=== PATIENT | male | born 1975 | race Hispanic/Latino ===

== ENCOUNTER 2019-05-27 15:14 | Emergency (ER) | payer OTHER ==
[2019-05-27 16:07] LABS: Basophils % 0.8 % (0-1.3); Hematocrit 45.3 % (39.6-49.0); Lymphocytes % 19.5 % (15.3-44.8); MPV 9.8 fL (7.6-11.3); RBC Red Blood Cell Count 4.98 M/uL (4.33-5.43)
[2019-05-27 16:10] LABS: Protime INR 1.01
[2019-05-27 16:25] LABS: ALT/SGPT 75 U/L (12-78); AST/SGOT 26 U/L (15-37); Albumin 3.9 g/dL (3.4-5.0); Alkaline Phosphatase 74 U/L (45-117); BUN Blood Urea Nitrogen 19 mg/dL (7-18); Bicarbonate 28 mmol/L (21-32); Bilirubin Direct < 0.1 mg/dL (0-0.2); Bilirubin Total 0.3 mg/dL (0.2-1.0); Glucose Level 101 mg/dL (74-106); Magnesium 2.1 mg/dL (1.8-2.4); NT PRO-BNP 27 pg/mL (<125); Potassium 3.9 mmol/L (3.5-5.1); Protein, Total 7.5 g/dL (6.4-8.2); Sodium Level 143 mmol/L (136-145); Troponin (Emerg Dept Use Only) < 0.02 ng/mL (0.0-0.045)
[2019-05-27] MEDS ORDERED: ASPIRIN 81 MG CHEWABLE TABLET ONE (16:59)
[2019-05-27] MEDS ORDERED: MORPHINE 4 MG/ML SYR ONE (17:00)
[2019-05-27] MEDS ORDERED: METOPROLOL TARTRATE 5 MG/5 ML INJ IV ONE (17:00)
[2019-05-27] MEDS ORDERED: ONDANSETRON 4 MG/2 ML VIAL ONE (17:00)
--- NOTE | 2019-05-27 17:43 | RAD REPORT ---
EXAM DESCRIPTION: RAD - Chest Single View - 05/27/2019 3:56 pm CLINICAL HISTORY: Chest pain;Dyspnea Chest pain. COMPARISON: No comparisons FINDINGS: Portable technique limits examination quality. The lungs are grossly clear. The heart is normal in size. No displaced fractures. IMPRESSION: No acute intrathoracic process suspected.
--- NOTE | 2019-05-27 18:29 | ER ---
Nurse's Notes [facility] Name: Molina Shine Age: 43 yrs Sex: Male : 1975 Arrival Date: 05/27/2019 Time: 15:17 Bed 14 Private MD: Diagnosis: Chest pain, unspecified Presentation: 05/26 15:20 Chief complaint: Patient states: Chest pain since yesterday. It gets tight and worse ca1 today, concerning in the past few hours. The pain goes to the back and neck on the L side. Reports SOB before chest pain, nausea and dizziness. Reports cough and congestion x 2 weeks. Denies fever. Coronavirus screen: Surgical mask placed on patient. Patient moved to private room, placed in contact and droplet isolation with eye protection until further assessment. Patient reports a cough. Patient reports shortness of breath or difficulty breathing. Patient denies measured and/or subjective temperature greater than 100.4F. Patient denies travel on a cruise ship or to a country the [facility] currently lists as an affected area. Patient denies contact with known and/or suspected case of COVID-19. Infection Prevention Nurse has been notified of patient in isolation for probable COVID-19. Ebola Screen: Patient negative for fever greater than or equal to 101.5 degrees Fahrenheit, and additional compatible Ebola Virus Disease symptoms Patient denies exposure to infectious person. Patient denies travel to an Ebola-affected area in the 21 days before illness onset. No symptoms or risks identified at this time. Initial Sepsis Screen: Does the patient meet any 2 criteria? No. Patient's initial sepsis screen is negative. Does the patient have a suspected source of infection? No. Patient's initial sepsis screen is negative. Risk Assessment: Do you want to hurt yourself or someone else? Patient reports no desire to harm self or others. Onset of symptoms was May 27, 2019. 15:20 Method Of Arrival: Ambulatory ca1 15:20 Acuity: VERNON 3 ca1 Historical: - Allergies: 15:25 No Known Allergies; ca1 - PMHx: 15:25 Hernia; ca1 - PSHx: 15:25 Hernia repair; ca1 - Immunization history:: Adult Immunizations up to date, Flu vaccine is not up to date. - Social history:: Smoking status: Patient denies any tobacco usage or history of. Vital Signs: 15:20 BP 162 / 105; Pulse 100; Resp 17 S; Temp 97.2(TE); Pulse Ox 100% on R/A; Weight 127.01 ca1 kg (R); Height 6 ft. 0 in. (182.88 cm) (R); Pain 6/10; 16:04 BP 156 / 99; Pulse 94; Resp 16; Pulse Ox 99% ; lt1 18:40 BP 154 / 99; Pulse 81; Resp 15; Temp 98.7; Pulse Ox 98% ; lt1 15:20 Body Mass Index 37.97 (127.01 kg, 182.88 cm) ca1 ED Course: 15:17 Patient arrived in ED. ag5 15:24 Triage completed. ca1 15:25 Arm band placed on right wrist. ca1 15:30 J[facility]C [facility]. kb 15:30 Evert Le MD is Attending Physician. kb 15:40 Jamila Chavarria RN is Primary Nurse. ls4 15:56 XRAY Chest (1 view) In Process Unspecified. EDMS 15:57 Initial lab(s) drawn, by me, sent to lab. EKG done, by ED staff, reviewed by Jovanna GAINES. Inserted saline lock: 20 gauge in right antecubital area, using aseptic technique. 15:59 Bed in low position. Call light in reach. Side rails up X 1. Door closed. Lights lt1 dimmed. Warm blanket given. Pillow given. 15:59 Basic Metabolic Panel Sent. lt1 15:59 CBC with Diff Sent. lt1 15:59 LFT's Sent. lt1 15:59 Magnesium Sent. lt1 15:59 NT PRO-BNP Sent. lt1 15:59 PT-INR Sent. lt1 15:59 Troponin (emerg Dept Use Only) Sent. lt1 Administered Medications: 16:32 Not Given (Physician Discretion): Lopressor 5 mg IVP every 5 minutes; Hold for SBP < kb 100 or HR < 60. x3 16:40 Drug: Aspirin Chewable Tablet 324 mg Route: PO; ls4 18:13 Drug: Zofran (Ondansetron) 4 mg Route: IVP; Site: right antecubital; ls4 18:14 Drug: morphine 4 mg Route: IVP; Site: right antecubital; ls4 Outcome: 18:28 Discharge ordered by . kb 19:18 Patient left the ED. ls4 Signatures: Dispatcher [employer] EDJovanna Chance, Jamila Baldwin RN RN ls4 Keli Stoll RN RN ca1 [place] 5 Malgorzata Moncada 1
--- NOTE | 2019-05-27 18:30 | EDPHYS ---
Physician Documentation [facility] Name: Molina Shine Age: 43 yrs Sex: Male : 1975 Arrival Date: 05/27/2019 Time: 15:17 Bed 14 Private MD: ED Physician Evert Le HPI: 05/26 16:03 This 43 yrs old Male presents to ER via Ambulatory with complaints of kb Shortness Of Breath, Chest Pain, Neck Pain, <24hrs Old, Back Pain. 16:04 The patient or guardian reports chest pain that is located primarily in the anterior kb chest wall, left. Onset: last night. The pain radiates to left neck, back. Associated signs and symptoms: Pertinent positives: cough, shortness of breath, Pertinent negatives: abdominal pain, diaphoresis, dizziness, headache, lower extremity pain, lower extremity swelling, lightheadedness, nausea, near syncope, palpitations, recent travel, syncope, vomiting. The chest pain is described as a pressure. Duration: The patient or guardian reports multiple episodes, that are intermittent, with no pattern. Modifying factors: The symptoms are alleviated by nothing. the symptoms are aggravated by nothing. Severity of pain: At its worst the pain was moderate in the emergency department the pain is unchanged. The patient has not experienced similar symptoms in the past. The patient has not recently seen a physician. Pt reports chest pain and shortness of breath that has been intermittent since last night. Reports the episodes are getting more frequent and now the pain is radiating to left neck and back. Pt called his dr and was advised to come to the ER for eval. Pt reports cough and congestion that started a few weeks ago when the weather changed, no fever, sore throat. . Historical: - Allergies: 15:25 No Known Allergies; ca1 - PMHx: 15:25 Hernia; ca1 - PSHx: 15:25 Hernia repair; ca1 - Immunization history:: Adult Immunizations up to date, Flu vaccine is not up to date. - Social history:: Smoking status: Patient denies any tobacco usage or history of. ROS: 15:49 Constitutional: Negative for fever, chills, and weight loss, ENT: Negative for injury, kb pain, and discharge, Abdomen/GI: Negative for abdominal pain, nausea, vomiting, diarrhea, and constipation, Back: Negative for injury and pain, MS/Extremity: Negative for injury and deformity, Skin: Negative for injury, rash, and discoloration, Neuro: Negative for headache, weakness, numbness, tingling, and seizure. 15:49 Cardiovascular: Positive for chest pain, Negative for edema, orthopnea, palpitations, paroxysmal nocturnal dyspnea. 15:49 Respiratory: Positive for cough, with clear sputum, Negative for dyspnea on exertion, hemoptysis, orthopnea, pleurisy, shortness of breath, wheezing. Exam: 15:48 Constitutional: This is a well developed, well nourished patient who is awake, alert, kb and in no acute distress. Head/Face: Normocephalic, atraumatic. ENT: Nares patent. No nasal discharge, no septal abnormalities noted. Tympanic membranes are normal and external auditory canals are clear. Oropharynx with no redness, swelling, or masses, exudates, or evidence of obstruction, uvula midline. Mucous membranes moist. Neck: Trachea midline, no thyromegaly or masses palpated, and no cervical lymphadenopathy. Supple, full range of motion without nuchal rigidity, or vertebral point tenderness. No Meningismus. Chest/axilla: Normal chest wall appearance and motion. Nontender with no deformity. No lesions are appreciated. Cardiovascular: Regular rate and rhythm with a normal S1 and S2. No gallops, murmurs, or rubs. Normal PMI, no JVD. No pulse deficits. Respiratory: Lungs have equal breath sounds bilaterally, clear to auscultation and percussion. No rales, rhonchi or wheezes noted. No increased work of breathing, no retractions or nasal flaring. Abdomen/GI: Soft, non-tender, with normal bowel sounds. No distension or tympany. No guarding or rebound. No evidence of tenderness throughout. Back: No spinal tenderness. No costovertebral tenderness. Full range of motion. Skin: Warm, dry with normal turgor. Normal color with no rashes, no lesions, and no evidence of cellulitis. MS/ Extremity: Pulses equal, no cyanosis. Neurovascular intact. Full, normal range of motion. Neuro: Awake and alert, GCS 15, oriented to person, place, time, and situation. Cranial nerves II-XII grossly intact. Motor strength 5/5 in all extremities. Sensory grossly intact. Cerebellar exam normal. Normal gait. 15:48 ECG was reviewed by the Attending Physician. Vital Signs: 15:20 BP 162 / 105; Pulse 100; Resp 17 S; Temp 97.2(TE); Pulse Ox 100% on R/A; Weight 127.01 ca1 kg (R); Height 6 ft. 0 in. (182.88 cm) (R); Pain 6/10; 16:04 BP 156 / 99; Pulse 94; Resp 16; Pulse Ox 99% ; lt1 18:40 BP 154 / 99; Pulse 81; Resp 15; Temp 98.7; Pulse Ox 98% ; lt1 15:20 Body Mass Index 37.97 (127.01 kg, 182.88 cm) ca1 MDM: 15:30 Patient medically screened. kb 15:48 Data reviewed: vital signs, nurses notes. Data interpreted: Pulse oximetry: on room air kb is 100 %. Interpretation: normal. 16:27 The patient was given aspirin in the Emergency Department. JAVIER Risk Score: TOTAL SCORE kb = 0. ED course: HEART score 0. 18:27 Counseling: I had a detailed discussion with the patient and/or guardian regarding: the kb historical points, exam findings, and any diagnostic results supporting the discharge/admit diagnosis, lab results, radiology results, the need for outpatient follow up, a family practitioner, to return to the emergency department if symptoms worsen or persist or if there are any questions or concerns that arise at home. 05/26 15:30 Order name: Basic Metabolic Panel; Complete Time: 16:26 kb 05/26 15:30 Order name: CBC with Diff; Complete Time: 16:09 kb 05/26 15:30 Order name: LFT's; Complete Time: 16:26 kb 05/26 15:30 Order name: Magnesium; Complete Time: 16:26 kb 05/26 15:30 Order name: NT PRO-BNP; Complete Time: 16:26 kb 05/26 15:30 Order name: PT-INR; Complete Time: 16:20 kb 05/26 15:30 Order name: Troponin (emerg Dept Use Only); Complete Time: 16:26 kb 05/26 15:30 Order name: XRAY Chest (1 view); Complete Time: 17:51 kb 05/26 15:30 Order name: EKG; Complete Time: 15:32 kb 05/26 17:32 Order name: Troponin (emerg Dept Use Only); Complete Time: 18:27 kb 05/26 15:30 Order name: Cardiac monitoring; Complete Time: 15:59 kb 05/26 15:30 Order name: EKG - Nurse/Tech; Complete Time: 15:58 kb 05/26 15:30 Order name: IV Saline Lock; Complete Time: 15:58 kb 05/26 15:30 Order name: Labs collected and sent; Complete Time: 15:58 kb 05/26 15:30 Order name: O2 Per Protocol; Complete Time: 15:58 kb 05/26 15:30 Order name: O2 Sat Monitoring; Complete Time: 15:57 kb 05/26 17:32 Order name: EKG; Complete Time: 17:33 kb 05/26 17:32 Order name: EKG - Nurse/Tech; Complete Time: 17:35 kb EC:48 Rate is 96 beats/min. Rhythm is regular. QRS [place] is Normal. [place] interval is normal at kb 132 msec. QRS interval is normal at 76 msec. QT interval is normal at 338 msec. Administered Medications: 16:32 Not Given (Physician Discretion): Lopressor 5 mg IVP every 5 minutes; Hold for SBP < kb 100 or HR < 60. x3 16:40 Drug: Aspirin Chewable Tablet 324 mg Route: PO; ls4 18:13 Drug: Zofran (Ondansetron) 4 mg Route: IVP; Site: right antecubital; ls4 18:14 Drug: morphine 4 mg Route: IVP; Site: right antecubital; ls4 Disposition: 05/27/19 18:28 Discharged to Home. Impression: Chest pain, unspecified. - Condition is Stable. - Discharge Instructions: Nonspecific Chest Pain, [id number]. - Medication Reconciliation Form, Thank You Letter, Antibiotic Education, Prescription Opioid Use form. - Follow up: Emergency Department; When: As needed; Reason: Worsening of condition. Follow up: Private Physician; When: 2 - 3 days; Reason: Recheck today's complaints, Continuance of care, Re-evaluation by your physician. Signatures: Dispatcher [employer] EDJovanna Chance, Jamila Baldwin RN RN ls4 Keli Stoll RN RN [facility] Corrections: (The following items were deleted from the chart) 19:18 18:28 05/27/2019 18:28 Discharged to Home. Impression: Chest pain, unspecified. ls4 Condition is Stable. Forms are Medication Reconciliation Form, Thank You Letter, Antibiotic Education, Prescription Opioid Use. Follow up: Emergency Department; When: As needed; Reason: Worsening of condition. Follow up: Private Physician; When: 2 - 3 days; Reason: Recheck today's complaints, Continuance of care, Re-evaluation by your physician. kb
[2019-05-27 19:50] VITALS: TEMP 98.7; O2SAT 98
[2019-05-27 20:21] VITALS: BP 122/85
--- NOTE | 2019-05-28 11:22 | EKG ---
Test Date: 2019-05-27 Test Time: 17:41:16 Installer: DIANNT MEASUREMENT RESULTS: Intervals: Rate: 83 IN: 132 QRSD: 80 QT: 358 QTc: 420 [place]: P: 31 IN: 132 QRS: 6 T: 31 INTERPRETIVE STATEMENTS: Normal sinus rhythm Normal ECG Compared to ECG 05/27/2019 15:41:38 No significant changes Electronically Signed On 05-28-19 11:20:20 CDT by Kilo South
--- NOTE | 2019-05-28 11:23 | EKG ---
Test Date: 2019-05-27 Test Time: 15:41:38 Rpg Developer: DIANNT MEASUREMENT RESULTS: Intervals: Rate: 96 FL: 132 QRSD: 76 QT: 338 QTc: 427 [place]: P: 30 FL: 132 QRS: 6 T: 33 INTERPRETIVE STATEMENTS: Normal sinus rhythm Normal ECG No previous ECG available for comparison Electronically Signed On 05-28-19 11:20:26 CDT by Kilo South
== END 2019-05-27 19:18 | disposition home or self-care (01) ==
LOC: ER 15:14
DX: R07.9 Chest pain, unspecified (principal)
CPT/HCPCS: 93005 ×2; 85025; 80048; 36415; 83735; 85610; 80076; 84484 ×2; 83880; 71045; 96375; 96374; 99284; J2405

== ENCOUNTER 2021-07-13 15:57 | Emergency (ER) | payer OTHER ==
--- OUTSIDE RECORDS SUMMARY | 2021-07-13 16:01 | XMS REPORT | Continuity of Care Document ---
:1975 Author Organization [facility] t Address [address] [place] [address] [address] [place] [address] Care Team Providers Name Role Phone Unavailable Unavailable Unavailable Problems This patient has no known problems. Allergies, Adverse Reactions, Alerts This patient has no known allergies or adverse reactions. Medications This patient has no known medications. Procedures This patient has no known procedures. Results Test Description Test Time Test Comments Results Result Comments Source PLATELET COUNT 2016-09-04 11:31:00 Test Item Value Reference Range Interpretation Comme nts PLATELET COUNT (GEOVANNA) (test code = 756) 194 K/CU MM 150-430
[2021-07-13 16:41] LABS: Absolute Lymphocytes (CBC) 1.6 K/uL (0.7-4.9); Hematocrit 45.3 % (39.6-49.0); Lymphocytes % 13.9 % (15.3-44.8); MPV 9.3 fL (7.6-11.3)
[2021-07-13] MEDS ORDERED: MORPHINE 4 MG/ML SYR ONE (16:47)
[2021-07-13] MEDS ORDERED: ASPIRIN 81 MG CHEWABLE TABLET ONE (16:47)
[2021-07-13 16:57] LABS: Bilirubin Direct 0.2 mg/dL (0-0.2); Bilirubin Total 0.4 mg/dL (0.2-1.0); Potassium 3.9 mmol/L (3.5-5.1)
[2021-07-13 16:58] LABS: Albumin 3.5 g/dL (3.4-5.0); Magnesium 2.1 mg/dL (1.8-2.4); Troponin High Sensitivity 4.8 pg/mL (<58.9)
--- NOTE | 2021-07-13 17:18 | RAD REPORT ---
EXAM DESCRIPTION: RAD - Chest Single View - 07/13/2021 5:02 pm CLINICAL HISTORY: CHEST PAIN Chest pain. COMPARISON: Chest Single View dated 05/27/2019 FINDINGS: Portable technique limits examination quality. The lungs are grossly clear. The heart is normal in size. No displaced fractures. IMPRESSION: No acute intrathoracic process suspected.
[2021-07-13 17:24] LABS: Protime INR 0.93
[2021-07-13] MEDS ORDERED: IPRATROPIUM BROM 0.5MG/2.5ML ONE (19:02)
[2021-07-13] MEDS ORDERED: KETOROLAC 30 MG/ML INJ ONE (19:02)
[2021-07-13] MEDS ORDERED: ALBUTEROL 2.5 MG/3 ML NEB SOL ONE (19:02)
--- NOTE | 2021-07-13 21:23 | EDPHYS ---
Physician Documentation [facility] Name: Molina Shine Age: 45 yrs Sex: Male : 1975 Arrival Date: 07/13/2021 Time: 15:59 Bed 13 Private MD: ED Physician Evert Le HPI: 07/13 16:25 This 45 yrs old Male presents to ER via Ambulatory with complaints of Chest cp Pain, Shortness Of Breath. 16:25 The patient or guardian reports chest pain that is located primarily in the anterior cp chest wall, left. 16:25 Onset: this morning. cp 16:25 The pain does not radiate. cp 16:25 Associated signs and symptoms: Pertinent positives: cough, shortness of breath, cp Pertinent negatives: abdominal pain, diaphoresis, lower extremity pain, lower extremity swelling, palpitations, vomiting. Duration: The patient or guardian reports a single episode, that is still ongoing. Modifying factors: the symptoms are aggravated by deep breath. Severity of pain: in the emergency department the pain is unchanged despite home interventions. Historical: - Allergies: 16:05 No Known Allergies; vg1 - Home Meds: 16:05 None [Active]; vg1 - PMHx: 16:05 Hypertensive disorder; Hernia; vg1 - PSHx: 16:05 Hernia Repair; vg1 - Immunization history:: Client reports receiving the 2nd dose of the Covid vaccine. - Social history:: Smoking status: Patient denies any tobacco usage or history of. ROS: 16:30 Constitutional: Negative for body aches, chills, fever, poor PO intake. cp 16:30 Eyes: Negative for injury, pain, redness, and discharge. cp 16:30 ENT: Negative for drainage from ear(s), ear pain, sore throat, difficulty swallowing, difficulty handling secretions. 16:30 Cardiovascular: Positive for chest pain, Negative for edema, palpitations. 16:30 Respiratory: Positive for shortness of breath, at rest. Negative for cough, sputum production, wheezing. 16:30 Abdomen/GI: Negative for abdominal pain, nausea, vomiting, and diarrhea, constipation, black/tarry stool, rectal bleeding. 16:30 : Negative for urinary symptoms. 16:30 Skin: Negative for cellulitis, rash. 16:30 Neuro: Negative for altered mental status, dizziness, headache, numbness, syncope, weakness. 16:30 All other systems are negative. Exam: 16:31 ECG was reviewed by the Attending Physician. cp 16:35 Constitutional: The patient appears in no acute distress, alert, awake, cp non-diaphoretic, non-toxic, well developed, well nourished, obese. 16:35 Head/Face: Normocephalic, atraumatic. cp 16:35 Eyes: Periorbital structures: appear normal, Conjunctiva: normal, no exudate, no cp injection, Sclera: no appreciated abnormality, Lids and lashes: appear normal, bilaterally. 16:35 ENT: External ear(s): are unremarkable, Nose: is normal, Mouth: Lips: moist, Oral cp mucosa: moist, Posterior pharynx: Airway: no evidence of obstruction, patent, Tonsils: are normal in appearance, swelling, is not appreciated, erythema, is not appreciated, exudate, is not appreciated. 16:35 Neck: ROM/movement: is normal, is supple, without pain, no range of motions limitations. 16:35 Chest/axilla: Inspection: normal, Palpation: is normal, no crepitus, no tenderness. 16:35 Cardiovascular: Rate: normal, Rhythm: regular, Edema: is not appreciated, JVD: is not appreciated. 16:35 Respiratory: the patient does not display signs of respiratory distress, Respirations: normal, no use of accessory muscles, no retractions, labored breathing, is not present, Breath sounds: are clear throughout, no decreased breath sounds, no stridor, no wheezing. 16:35 Abdomen/GI: Inspection: abdomen appears normal, Palpation: abdomen is soft and non-tender, in all quadrants. 16:35 Back: pain, is absent, ROM is normal. 16:35 Skin: cellulitis, is not appreciated, no rash present. 16:35 Neuro: Orientation: to person, place \\T\\ time. Mentation: is normal, Motor: moves all fours, strength is normal. 21:25 ECG was reviewed by the Attending Physician. cp Vital Signs: 16:03 BP 155 / 99; Pulse 96; Resp 20; Temp 98.2(O); Pulse Ox 100% ; Weight 136.08 kg; Height vg1 6 ft. 0 in. (182.88 cm); Pain 8/10; 17:18 BP 137 / 96; Pulse 88; Resp 16; Pulse Ox 96% on R/A; jb4 18:45 BP 127 / 90; Pulse 90; Resp 16; Pulse Ox 99% on R/A; jb4 19:45 BP 114 / 70; Pulse 87; Resp 16; Pulse Ox 99% on R/A; jb4 20:45 BP 112 / 63; Pulse 90; Resp 16; Pulse Ox 98% on R/A; jb4 16:03 Body Mass Index 40.69 (136.08 kg, 182.88 cm) vg1 MDM: 16:16 Patient medically screened. cp 17:00 Differential diagnosis: acute myocardial infarction, acute pericarditis, chest wall cp pain, cholecystitis, Cholelithiasis costochondritis, pancreatitis, pleurisy, pneumonia, pneumothorax, pulmonary embolus, stable angina, unstable angina. 21:22 Data reviewed: vital signs, nurses notes, lab test result(s), EKG, radiologic studies, cp plain films. 21:22 Test interpretation: by ED physician or midlevel provider: ECG, plain radiologic cp studies. Counseling: I had a detailed discussion with the patient and/or guardian regarding: the historical points, exam findings, and any diagnostic results supporting the discharge/admit diagnosis, lab results, radiology results, the need for outpatient follow up, a finisher plate, a family practitioner, to return to the emergency department if symptoms worsen or persist or if there are any questions or concerns that arise at home. Response to treatment: the patient's symptoms have markedly improved after treatment. Special discussion: Based on the patient's history, exam, and Dx evaluation, there is no indication for emergent intervention or inpatient Tx. It is understood by the patient/guardian that if the Sx's persist or worsen they need to return immediately for re-evaluation. 07/13 16:22 Order name: Basic Metabolic Panel; Complete Time: 17:50 cp 07/13 17:50 Interpretation: Normal except: CL 109. cp 07/13 16:22 Order name: CBC with Diff; Complete Time: 17:50 cp 07/13 17:51 Interpretation: Normal except: WBC 11.4; LYM% 13.9; NEUT A 8.3. cp 07/13 16:22 Order name: D-Dimer; Complete Time: 17:50 cp 05/13 16:22 Order name: LFT's; Complete Time: 17:50 cp 05 16:22 Order name: Magnesium; Complete Time: 17:50 cp 07/13 16:22 Order name: NT PRO-BNP; Complete Time: 17:50 cp 07/13 16:22 Order name: PT-INR; Complete Time: 17:50 cp 07/13 16:22 Order name: Troponin HS; Complete Time: 17:50 cp 07/13 16:22 Order name: XRAY Chest (1 view); Complete Time: 17:50 cp 07/13 16:31 Order name: COVID-19 SARS RT PCR (Document "Date of Onset" if Symptomatic); Complete cp Time: 17:50 05 16:31 Order name: Influenza Screen (a \\T\\ B); Complete Time: 17:50 cp 07/13 19:38 Order name: Troponin HS; Complete Time: 20:36 cp 07/13 16:22 Order name: EKG; Complete Time: 16:23 cp 07/13 16:22 Order name: Cardiac monitoring; Complete Time: 16:33 cp 07/13 16:22 Order name: EKG - Nurse/Tech; Complete Time: 16:33 cp 07/13 16:22 Order name: IV Saline Lock; Complete Time: 16:33 cp 07/13 16:22 Order name: Labs collected and sent; Complete Time: 16:33 cp 07/13 16:22 Order name: O2 Per Protocol; Complete Time: 16:33 cp 07/13 16:22 Order name: O2 Sat Monitoring; Complete Time: 16:33 cp 07/13 19:38 Order name: EKG; Complete Time: 19:39 cp 07/13 19:38 Order name: EKG - Nurse/Tech; Complete Time: 21:19 cp EC:31 Rate is 94 beats/min. Rhythm is regular. [place] interval is normal. QRS interval is normal. cp QT interval is normal. T waves are Inverted in lead aVR. Interpreted by me. Reviewed by me. 21:25 Rate is 88 beats/min. Rhythm is regular. [place] interval is normal. QRS interval is normal. cp QT interval is normal. T waves are Inverted in lead aVR. Interpreted by me. Reviewed by me. Administered Medications: 16:48 Drug: Aspirin Chewable Tablet 324 mg Route: PO; jb4 17:18 Follow up: Response: No adverse reaction jb4 16:48 Drug: morphine 4 mg Route: IVP; Site: left antecubital; jb4 17:18 Follow up: Response: No adverse reaction jb4 19:04 Drug: Albuterol 2.5 mg Route: Inhalation; jb4 19:04 Drug: AtroVENT (ipratropium) Aerosol 0.5 mg Route: Inhalation; jb4 19:04 Drug: Ketorolac 30 mg Route: IVP; Site: left antecubital; jb4 19:30 Follow up: Response: No adverse reaction; Marked relief of symptoms jb4 Disposition Summary: 07/13/21 21:22 Discharge Ordered Location: Home cp Problem: new cp Symptoms: have improved cp Condition: Stable cp Diagnosis - Chest pain, unspecified cp - Shortness of breath cp Followup: cp - With: Vivek Rodriguez MD - When: 2 - 3 days - Reason: Recheck today's complaints Discharge Instructions: - Discharge Summary Sheet cp - Nonspecific Chest Pain, Adult cp - Aspirin and Your Heart cp - Form - Blood Pressure Record Sheet cp - How to Take Your Blood Pressure cp - Shortness of Breath, Adult cp Forms: - Medication Reconciliation Form cp - Thank You Letter cp - Antibiotic Education cp - Prescription Opioid Use cp - Work release form jb4 Prescriptions: - albuterol sulfate 90 mcg/actuation Inhalation HFA aerosol inhaler - inhale 1 puff by INHALATION route every 4-6 hours; 1 Inhaler; Refills: 0, cp Product Selection Permitted - Prednisone 20 mg Oral Tablet - take 2 tablets by ORAL route once daily for 5 days; 10 tablet; Refills: 0, cp Product Selection Permitted Signatures: Dispatcher [employer] Magnus Coelho PA PA cp Bryson, James, RN RN jb4 Mary Grace Lambert RN RN vg1 Corrections: (The following items were deleted from the chart) 16:30 16:30 This 45 yrs old Male presents to ER via Ambulatory with complaints of cp Chest Pain, Shortness Of Breath. cp 17:51 17:50 Normal except: WBC 11.4. cp cp
--- NOTE | 2021-07-13 21:23 | ER ---
Nurse's Notes [facility] Name: Molina Shine Age: 45 yrs Sex: Male : 1975 Arrival Date: 07/13/2021 Time: 15:59 Bed 13 Private MD: Diagnosis: Chest pain, unspecified;Shortness of breath Presentation: 07/13 16:03 Chief complaint: Patient states: Chest pain began this morning with SOB; states has had vg1 a cough x 2 days; states chest hurts more with deep inhalation. Denies NV. Coronavirus screen: Vaccine status: Patient reports receiving the 2nd dose of the covid vaccine. Client denies travel out of the [place] in the last 14 days. Ebola Screen: Patient denies exposure to infectious person. Patient denies travel to an Ebola-affected area in the 21 days before illness onset. Initial Sepsis Screen: Does the patient meet any 2 criteria? No. Patient's initial sepsis screen is negative. Does the patient have a suspected source of infection? No. Patient's initial sepsis screen is negative. Risk Assessment: Do you want to hurt yourself or someone else? Patient reports no desire to harm self or others. Onset of symptoms was July 13, 2021. 16:03 Method Of Arrival: Ambulatory vg1 16:03 Acuity: VERNON 2 vg1 Triage Assessment: 16:05 General: Appears uncomfortable, Behavior is calm, cooperative. Pain: Complains of pain vg1 in anterior aspect of left upper chest and mid-sternal area Pain does not radiate. Pain currently is 8 out of 10 on a pain scale. Cardiovascular: Patient's skin is warm and dry. Respiratory: Airway is patent Respiratory effort is even, unlabored, Respiratory pattern is regular. Historical: - Allergies: 16:05 No Known Allergies; vg1 - Home Meds: 16:05 None [Active]; vg1 - PMHx: 16:05 Hypertensive disorder; Hernia; vg1 - PSHx: 16:05 Hernia Repair; vg1 - Immunization history:: Client reports receiving the 2nd dose of the Covid vaccine. - Social history:: Smoking status: Patient denies any tobacco usage or history of. Screenin:55 Abuse screen: Denies threats or abuse. Nutritional screening: No deficits noted. jb4 Tuberculosis screening: No symptoms or risk factors identified. Fall Risk None identified. Assessment: 16:55 General: Appears in no apparent distress. uncomfortable, Behavior is calm, cooperative, jb4 appropriate for age. Pain: Complains of pain in chest Pain does not radiate. Pain currently is 8 out of 10 on a pain scale. Neuro: Arreguin Agitation-Sedation Scale (RASS): 0 - Alert and Calm Level of Consciousness is awake, alert, obeys commands, Oriented to person, place, time, situation. Cardiovascular: Patient's skin is warm and dry. Respiratory: Airway is patent Respiratory effort is even, unlabored, Respiratory pattern is regular, symmetrical. GI: No signs and/or symptoms were reported involving the gastrointestinal system. : No signs and/or symptoms were reported regarding the genitourinary system. EENT: No signs and/or symptoms were reported regarding the EENT system. Derm: Skin is intact, Skin is pink, warm \\T\\ dry. Musculoskeletal: Circulation, motion, and sensation intact. Range of motion: intact in all extremities. 18:00 Reassessment: Patient appears in no apparent distress at this time. Patient and/or jb4 family updated on plan of care and expected duration. Pain level reassessed. Patient is alert, oriented x 3, equal unlabored respirations, skin warm/dry/pink. 18:50 Reassessment: Patient appears in no apparent distress at this time. Patient and/or jb4 family updated on plan of care and expected duration. Pain level reassessed. Patient is alert, oriented x 3, equal unlabored respirations, skin warm/dry/pink. 20:00 Reassessment: Patient appears in no apparent distress at this time. Patient and/or jb4 family updated on plan of care and expected duration. Pain level reassessed. Patient is alert, oriented x 3, equal unlabored respirations, skin warm/dry/pink. 20:52 Reassessment: Patient appears in no apparent distress at this time. Patient and/or jb4 family updated on plan of care and expected duration. Pain level reassessed. Patient is alert, oriented x 3, equal unlabored respirations, skin warm/dry/pink. 21:30 Reassessment: Patient appears in no apparent distress at this time. Patient and/or jb4 family updated on plan of care and expected duration. Pain level reassessed. Patient is alert, oriented x 3, equal unlabored respirations, skin warm/dry/pink. Vital Signs: 16:03 BP 155 / 99; Pulse 96; Resp 20; Temp 98.2(O); Pulse Ox 100% ; Weight 136.08 kg; Height vg1 6 ft. 0 in. (182.88 cm); Pain 8/10; 17:18 BP 137 / 96; Pulse 88; Resp 16; Pulse Ox 96% on R/A; jb4 18:45 BP 127 / 90; Pulse 90; Resp 16; Pulse Ox 99% on R/A; jb4 19:45 BP 114 / 70; Pulse 87; Resp 16; Pulse Ox 99% on R/A; jb4 20:45 BP 112 / 63; Pulse 90; Resp 16; Pulse Ox 98% on R/A; jb4 16:03 Body Mass Index 40.69 (136.08 kg, 182.88 cm) 1 ED Course: 15:59 Patient arrived in ED. am2 16:05 Triage completed. 1 16:05 Arm band placed on. EKG completed in triage. Results shown to MD. 1 16:09 Magnus Real PA is PHCP. cp 16:09 Evert Le MD is Attending Physician. cp 16:29 Initial lab(s) drawn, by ar, sent to lab. Inserted saline lock: 20 gauge in left vg1 antecubital area, using aseptic technique. Blood collected. 16:39 Los Mak, RN is Primary Nurse. [facility] 16:39 Influenza Screen (a \\T\\ B) Sent. [facility] 16:39 COVID-19 SARS RT PCR (Document "Date of Onset" if Symptomatic) Sent. [facility] 16:42 Patient has correct armband on for positive identification. Bed in low position. Call [facility] light in reach. Side rails up X 1. Adult w/ patient. Warm blanket given. fiscal manager on. Pulse ox on. NIBP on. 16:42 Basic Metabolic Panel Sent. [facility] 16:42 CBC with Diff Sent. 5 16:42 D-Dimer Sent. 5 16:42 LFT's Sent. [facility] 16:42 Magnesium Sent. [facility] 16:42 NT PRO-BNP Sent. [facility] 16:42 PT-INR Sent. [facility] 16:42 Troponin HS Sent. [facility] 17:03 XRAY Chest (1 view) In Process Unspecified. EDMS 21:21 Vivek Rodriguez MD is Referral Physician. cp 21:30 No provider procedures requiring assistance completed. IV discontinued, intact, jb4 bleeding controlled, No redness/swelling at site. Pressure dressing applied. Patient maintains SpO2 saturation greater than 95% on room air. Administered Medications: 16:48 Drug: Aspirin Chewable Tablet 324 mg Route: PO; jb4 17:18 Follow up: Response: No adverse reaction jb4 16:48 Drug: morphine 4 mg Route: IVP; Site: left antecubital; jb4 17:18 Follow up: Response: No adverse reaction jb4 19:04 Drug: Albuterol 2.5 mg Route: Inhalation; jb4 19:04 Drug: AtroVENT (ipratropium) Aerosol 0.5 mg Route: Inhalation; jb4 19:04 Drug: Ketorolac 30 mg Route: IVP; Site: left antecubital; jb4 19:30 Follow up: Response: No adverse reaction; Marked relief of symptoms jb4 Outcome: 21:22 Discharge ordered by MD. cp 21:42 Discharged to home ambulatory, with family. jb4 21:42 Condition: stable 21:42 Discharge instructions given to patient, Instructed on discharge instructions, follow up and referral plans. medication usage, Demonstrated understanding of instructions, follow-up care, medications, Prescriptions given X 2. 21:43 Patient left the ED. jb4 Signatures: Dispatcher [employer] EDMD Magnus Real PA PA cp Bryson, James, RN RN jb4 Tiffani Harrison Andreea Tim Victoria, RN RN vg1
[2021-07-14 13:33] VITALS: TEMP 98.2
[2021-07-14 13:38] VITALS: BP 112/63; O2SAT 98
--- NOTE | 2021-07-14 14:57 | EKG ---
Test Date: 2021-07-13 Test Time: 21:19:34 Crystalizer Tender: JARVIS MEASUREMENT RESULTS: Intervals: Rate: 88 [place]: 136 QRSD: 82 QT: 340 QTc: 411 [place]: P: 32 NJ: 136 QRS: 3 T: 22 INTERPRETIVE STATEMENTS: Normal sinus rhythm Normal ECG Compared to ECG 07/13/2021 16:22:33 No significant changes Electronically Signed On 07-14-21 14:54:10 CDT by Vivek Rodriguez
--- NOTE | 2021-07-14 14:57 | EKG ---
Test Date: 2021-07-13 Test Time: 16:22:33 Engine Lathe Set Up Operator: RYANN MEASUREMENT RESULTS: Intervals: Rate: 94 MI: 136 QRSD: 78 QT: 330 QTc: 412 [place]: P: 39 MI: 136 QRS: 4 T: 30 INTERPRETIVE STATEMENTS: Normal sinus rhythm Normal ECG Compared to ECG 05/27/2019 17:41:16 No significant changes Electronically Signed On 07-14-21 14:54:09 CDT by Vivek Rodriguez
== END 2021-07-13 21:43 | disposition home or self-care (01) ==
LOC: ER 15:57
DX: R07.9 Chest pain, unspecified (principal); R06.02 Shortness of breath; I10 Essential (primary) hypertension; Z20.822 Contact with and (suspected) exposure to COVID-19
CPT/HCPCS: 93005 ×2; 85025; 80048; 36415; 83735; 85610; 85379; 80076; 84484 ×2; 83880; 87804 ×2; 71045; 96375; 96374; 99285; U0003